=== PATIENT | female | born 1930 | race Caucasian/White ===

== ENCOUNTER 2018-02-26 09:33 | Observation (INO) | payer MEDICARE ==
--- NOTE | 2018-02-19 12:53 | Diagnostic Imaging Report ---
PROCEDURE: Frontal and lateral views of the chest. COMPARISON: None. INDICATIONS: BLADDER TUMOR FINDINGS: Lines/tubes: None. Lungs: Biapical scarring. No evidence of infection or edema. A 1.2 cm nodular opacity projected over the right lower chest most likely represents a nipple shadow. Pleura: There is no pleural effusion or pneumothorax. Heart and mediastinum: Heart size is at the upper limit of normal. Mildly tortuous, calcified thoracic aorta. Bones: Multilevel degenerative changes of the thoracic spine. IMPRESSION: No acute cardiopulmonary disease. Small nodular opacity projected over the right lung is probably a nipple shadow. Consider followup radiograph with nipple markers. Dictated by: Louie Conrad M.D. on 02/19/2018 at 12:59 Electronically approved by: Louie Conrad M.D. on 02/19/2018 at 12:59
[2018-02-19 12:58] LABS: BASOPHILS # (AUTO) 0.1 (0.0-0.1); BASOPHILS % 0.6 % (0.0-1.0); EOSINOPHILS # (AUTO) 0.1 (0.0-0.4); EOSINOPHILS % 1.1 % (0.0-6.0); HEMATOCRIT 35.7 % (34.2-44.1); HEMOGLOBIN 11.6 g/dL (12.0-16.0); LYMPHOCYTES # (AUTO) 1.6 (1.0-3.2); LYMPHOCYTES % 18.2 % (18.0-39.1); MEAN CORPUSCULAR HEMOGLOBIN 28.8 pg (28-32); MEAN CORPUSCULAR HGB CONC 32.5 g/dL (31-35); MEAN CORPUSCULAR VOLUME 88.6 fL (81-99); MONOCYTES # (AUTO) 1.2 (0.2-0.8); MONOCYTES % 13.5 % (4.4-11.3); NEUTROPHILS # (AUTO) 5.8 (2.1-6.9); NEUTROPHILS % 66.4 % (38.7-80.0); PLATELET COUNT 301 x10e3/uL (140-360); RED BLOOD COUNT 4.03 x10e6/uL (3.6-5.1)
[2018-02-19 13:20] LABS: BLOOD UREA NITROGEN 27 mg/dL (7-26); BUN/CREATININE RATIO 31 (6-25); CALCIUM 9.8 mg/dL (8.4-10.2); CARBON DIOXIDE 26 mmol/L (22-29); CHLORIDE 101 mmol/L (98-107); CREATININE, SERUM 0.87 mg/dL (0.57-1.11); EST GLOMERULAR FILTRATION RATE > 60 ML/MIN (60-); GLUCOSE 105 mg/dL (74-118); SODIUM 136 mmol/L (136-145)
[~2018-02-26] VITALS: Ht 165.1 cm; Wt 64.5 kg
[~2018-02-26 09:33] MED LIST: LEVOTHYROXINE75 MCG PO; MICARDIS HCT 41 EACH PO; SERTRALINE HCL50 MG PO; SIMVASTATIN40 MG PO
[2018-02-26] MEDS ORDERED: FENTANYL CITRATE/PF 100MCG/2 ML INJ ONE ×2 (13:53→15:43)
[2018-02-26] MEDS ORDERED: DEXAMETHASONE SOD PHOS INJ 4 MG/ML VIAL IV ONE (14:22)
[2018-02-26] MEDS ORDERED: PROPOFOL IV EMULSION 10 MG/ML 20 ML VIAL IV ONE (14:22)
[2018-02-26] MEDS ORDERED: LIDOCAINE HCL 2% LOCAL INJ 5 ML SDV VIAL INJ ONE (14:22)
[2018-02-26] MEDS ORDERED: SEVOFLURANE INHAL SOLN 250 ML PEN BTL INH ONE (14:22)
[2018-02-26] MEDS ORDERED: ONDANSETRON HCL INJ 2 MG/ML VIAL IV ONE (14:22)
[2018-02-26] MEDS ORDERED: MORPHINE SULFATE 2 MG/ML SYR ONE (14:48)
[2018-02-26] MEDS ORDERED: DEXTROSE 5%/0.45% SOD CHL 1,000 ML IV ONE ×2 (16:22→16:45)
[2018-02-26 16:45] VITALS: BP 96/44
[2018-02-26] MEDS ORDERED: ACETAMINOPHEN/CODEINE 300MG - 30MG TAB PO PRN (16:45)
[2018-02-26] MEDS: LEVOFLOXACIN 500 MG TAB PO SCH (18:11)
[2018-02-26 19:49] VITALS: BP 96/44
[2018-02-26 19:53] VITALS: BP 116/58
[2018-02-26 20:00] VITALS: BP 116/58
[2018-02-26] MEDS: SIMVASTATIN 40 MG TAB PO SCH (22:00)
[2018-02-26 23:51] VITALS: BP 102/52
[2018-02-27 04:00] VITALS: BP 107/49
[2018-02-27] MEDS ORDERED: LEVOTHYROXINE SODIUM 75 MCG TAB PO SCH (06:00)
[2018-02-27] MEDS: LEVOTHYROXINE SODIUM 75 MCG TAB PO SCH (06:15)
[2018-02-27 08:07] VITALS: BP 116/59
[2018-02-27] MEDS ORDERED: TELMISARTAN 40 MG TAB PO SCH (09:00)
[2018-02-27] MEDS: SERTRALINE HCL 50 MG TAB PO SCH ×2 (09:00→11:20)
[2018-02-27] MEDS: HYDROCHLOROTHIAZIDE 25 MG TAB PO SCH ×2 (09:00→11:20)
[2018-02-27 12:22] VITALS: BP 119/56
[2018-02-27 16:36] VITALS: BP 123/53
[2018-02-27] MEDS: LEVOFLOXACIN 500 MG TAB PO SCH (18:00)
[2018-02-27] MEDS ORDERED: ONDANSETRON HCL INJ 2 MG/ML VIAL IV PRN (19:45)
[2018-02-27] MEDS ORDERED: LORAZEPAM 0.5 MG TAB PO ONE (19:45)
[2018-02-27 20:00] VITALS: BP 127/60
[2018-02-27] MEDS: SIMVASTATIN 40 MG TAB PO SCH (20:55)
[2018-02-28] VITALS: BP 113/56
[2018-02-28 04:00] VITALS: BP 117/53
[2018-02-28] MEDS: LEVOTHYROXINE SODIUM 75 MCG TAB PO SCH (06:23)
[2018-02-28 08:00] VITALS: BP 127/53
[2018-02-28 08:15] VITALS: BP 127/53
[2018-02-28] MEDS ORDERED: SERTRALINE HCL 50 MG TAB PO SCH (09:30)
[2018-02-28] MEDS ORDERED: HYDROCHLOROTHIAZIDE 25 MG TAB PO SCH (09:30)
[2018-02-28] MEDS ORDERED: TELMISARTAN 40 MG TAB PO SCH (09:30)
[2018-02-28 14:00] VITALS: BP 125/57
[2018-02-28 16:15] VITALS: BP 109/53
--- NOTE | 2018-03-01 12:58 | Operative Report ---
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 POSTOPERATIVE DIAGNOSIS: Transitional cell carcinoma of the bladder, large. OPERATIVE PROCEDURES PERFORMED 1. Cystoscopy 2. Transurethral resection of large bladder tumor. ANESTHESIA: General anesthesia. ESTIMATED BLOOD LOSS: Minimal. INDICATIONS: Ms. Xu Flores is an 87-year-old woman with a recent history of hematuria. Was found by office cystoscopy to have a large transitional cell tumor in the region of her bladder neck. She now presents for management of this problem. OPERATIVE PROCEDURE IN DETAIL: Patient brought to the operating room and placed in supine position. After initiation of general anesthesia, was placed in the dorsal lithotomy position and prepped and draped in the usual sterile fashion. Cystourethroscopy was performed using 21-Maldivian cystoscope. The anterior and posterior urethra were noted to be normal. The bladder was entered without difficulty. The patient had a massive cystocele and vaginal packing was placed to ease the procedure. The ureteral orifices were in normal anatomical position and produced clear reflux. Beginning at approximately 1 o'clock and proceeding downward until about 5 or 6 o'clock, there was a large papillary TCC noted in the region of the anterior bladder wall and the bladder neck. There was no obvious tumor seen on the right side or in the dome. The trigone was also equally clear. The ureteral orifices of both produced clear efflux. The bladder was left full and cystoscope and sheath were removed. The 26-Maldivian resectoscope sheath was then placed in a retrograde fashion and the Clinipace WorldW[employer] resectoscope was used to perform the procedure. All of the visualized tumor was resected down into the muscle. There was no obvious large tumors left at the conclusion of the procedure. There was no gross perforation of the bladder noted as well. The [employer] evacuator was used to remove all tumor material and this was sent to pathology for microscopic analysis. Once adequate hemostasis was secured, the resectoscope and sheath were removed and a 22-Maldivian 3-way catheter was placed. The patient was started on continuous bladder irrigation using saline. The ureter efflux was noted to be blood-tinged. The patient was returned to supine position and anesthesia was reversed. She was transferred to a bed and taken to the postanesthesia care unit in good condition. Of note, the needle and instrument count were correct at the conclusion of the case. Job#: [id number]
== END 2018-02-28 17:18 | disposition home or self-care (01) ==
LOC: OR 09:33 → PACU V 16:13 → MED/SURG 16:29
PROVIDERS: ADMIT Urology; ATTEND Urology
DX: C67.5 Malignant neoplasm of bladder neck (principal); R31.9 Hematuria, unspecified; I10 Essential (primary) hypertension; E03.9 Hypothyroidism, unspecified; K21.9 Gastro-esophageal reflux disease without esophagitis
CPT/HCPCS: 36415; 52500; 71046; 80048; 85025; 88305; 93005; G0378 ×3; J1100; J2001; J2270; J2405 ×2

== ENCOUNTER → 2018-04-25 | Day surgery (SDC) | payer MEDICARE ==
[2018-04-18 13:03] LABS: BASOPHILS % 0.3 % (0.0-1.0); EOSINOPHILS # (AUTO) 0.1 (0.0-0.4); EOSINOPHILS % 1.3 % (0.0-6.0); HEMATOCRIT 32.5 % (34.2-44.1); HEMOGLOBIN 10.2 g/dL (12.0-16.0); LYMPHOCYTES # (AUTO) 1.5 (1.0-3.2); MEAN CORPUSCULAR HEMOGLOBIN 26.3 pg (28-32); MEAN CORPUSCULAR HGB CONC 31.4 g/dL (31-35); MEAN CORPUSCULAR VOLUME 83.8 fL (81-99); MONOCYTES # (AUTO) 1.3 (0.2-0.8); MONOCYTES % 14.2 % (4.4-11.3); NEUTROPHILS % 66.9 % (38.7-80.0); PLATELET COUNT 304 x10e3/uL (140-360); RED BLOOD COUNT 3.88 x10e6/uL (3.6-5.1); RED CELL DISTRIBUTION WIDTH 14.4 % (11.7-14.4)
[2018-04-18 13:21] LABS: ANION GAP 14.9 mmol/L (8-16); CALCIUM 9.5 mg/dL (8.4-10.2); CREATININE, SERUM 0.97 mg/dL (0.57-1.11); POTASSIUM 3.9 mmol/L (3.5-5.1)
--- NOTE | 2018-04-18 14:04 | Diagnostic Imaging Report ---
EXAMINATION: CHEST 2 VIEWS INDICATION: Bladder tumor. Preop. COMPARISON: None FINDINGS: TUBES and LINES: None. LUNGS: Lungs are well inflated. Lungs are clear. There is no evidence of pneumonia or pulmonary edema. PLEURA: No pleural effusion or pneumothorax. HEART AND MEDIASTINUM: The cardiomediastinal silhouette is unremarkable. BONES AND SOFT TISSUES: No acute osseous lesion. Soft tissues are unremarkable. UPPER ABDOMEN: No free air under the diaphragm. IMPRESSION: No acute thoracic abnormality. Signed by: Dr. Cesar Leonard M.D. on 04/18/2018 2:01 PM
[~2018-04-25] MED LIST changes: +CEFTRIAXONE SOD 1 GM VIAL ONE; +DEXAMETHASONE SOD PHOS INJ 4 MG/ML VIAL ONE; +DIOVAN320 MG PO; +LIDOCAINE HCL 2% LOCAL INJ 5 ML SDV VIAL INJ ONE; +PROPOFOL IV EMULSION 10 MG/ML 20 ML VIAL ONE; +SEVOFLURANE INHAL SOLN 250 ML PEN BTL ONE
[2018-04-25 10:45] VITALS: BP 152/70
--- OUTSIDE RECORDS SUMMARY | 2018-05-07 10:33 | XMS REPORT | Clinical Summary ---
Author Author [facility] Organization [facility] Address Unknown Phone Unavailable Care Team Providers Care Cps Team Lead Name Role Phone Anuja Johnson MD PCP Allergies No Known Allergies Current Medications Prescription Sig. Disp. Refills Start End Date Status Date levothyroxine (SYNTHROID) Take 75 mcg by mouth Active 75 mcg tablet daily. simvastatin (ZOCOR) 40 mg Take 40 mg by mouth every Active tablet evening. Valsartan 320 mg tablet Take 320 mg by mouth Active daily. Omeprazole 40 mg capsule Take 40 mg by mouth Active daily. PROLENSA 0.07 % INT 1 GTT IN OD BID 0 12/15/19 Active ophthalmic drop 18 sertraline (ZOLOFT) 50 mg TK 1 T PO QD 4 12/20/19 Active tablet 18 multivitamin tablet Take 1 tablet by mouth Active daily. calcium carbonate/vitamin 1 tablet po once daily . Active D3 (CALCIUM WITH VITAMIN D OR) cyanocobalamin, vitamin 1 tablet po once daily . Active B-12, (VITAMIN B12 OR) vitamin E 400 unit 1 tablet po once daily . Active capsule LUTEIN OR 1 tablet po once daily . Active VALSARTAN OR Take by mouth. 12/26/19 Discontin 18 ued LEVOTHYROXINE SODIUM Take by mouth. 12/26/19 Discontin (LEVOTHYROXINE OR) 18 ued SULFAMETHOXAZOLE/TRIMETHO Take by mouth. 12/26/19 Discontin PRIM (BACTRIM OR) 18 ued Active Problems Problem Noted Date Altered mental status 11/25/2017 Subarachnoid hemorrhage Hyponatremia Resolved Problems Problem Noted Date Resolved Date Syncope 11/25/2017 11/26/2017 Traumatic subarachnoid hemorrhage 11/25/2017 11/26/2017 Encounters Date Type Specialty Care Team Description 01/16/2018 Office Visit Cardiology Brad Milner MD Syncope, unspecified syncope type (Primary Dx) 01/16/2018 Telephone Cardiology Lee Ann Chow RN Medications (Called to remind pt to continue witholding the Valsartan but pt still taking it. Reports feeling well and BP is fine. Dr. Milner informed of same, received order for pt to just continue taking Valsartan.) 01/14/2018 Hospital Cardiology Brad Milner MD Encounter 01/14/2018 Office Visit Cardiology Brad Milner MD Syncope, unspecified syncope type (Primary Dx); Essential hypertension 12/25/2017 Office Visit Family Practice Anuja Johnson MD Subarachnoid hemorrhage (Primary Dx); Hyponatremia; Elevated glucose; Anemia, unspecified type; Essential hypertension; Hypothyroidism, unspecified type; Prediabetes; History of syncope; Abnormal cardiovascular function study 12/14/2017 Office Visit Neurosurgery Babatunde Guevara MD Syncope, unspecified Yoan Mccoy ResidentMD syncope type; Subarachnoid hemorrhage following injury, no loss of consciousness, initial encounter 11/30/2017 Hospital Cardiology Darlin Witt Encounter 11/26/2017 Orders Only Cardiology Toni Alcocer 11/25/2017 [facility] Toni Banegas MD Syncope, unspecified - Encounter Cathie Mendiola MD syncope type (Primary 11/26/2017 Babatunde Guevara MD Dx); Subarachnoid hemorrhage; Right hip pain; Subarachnoid hemorrhage following injury, no loss of consciousness, initial encounter 11/25/2017 Emergency Emergency Medicine Smith Conn MD Subarachnoid hemorrhage following injury, with loss of consciousness, initial encounter (Primary Dx); Altered mental status, unspecified altered mental status type after 04/24/2017 Family History Medical History Relation Name Comments Heart disease Mother Relation Name Status Comments Mother Social History Tobacco Use Types Packs/Day Years Used Date Never Smoker Smokeless Tobacco: Never Used Alcohol Use Drinks/Week oz/Week Comments No Sex Assigned at Date Recorded Not on file Last Filed Vital Signs Vital Sign Reading Time Taken Blood Pressure 135/55 01/14/2018 9:17 AM CDT Pulse 67 01/14/2018 9:17 AM CDT Temperature 36.9 C (98.5 F) 01/14/2018 9:17 AM CDT Respiratory Rate 18 01/14/2018 9:17 AM CDT Oxygen Saturation 98% 01/14/2018 9:17 AM CDT Inhaled Oxygen - - Concentration Weight 67.6 kg (149 lb) 01/14/2018 9:17 AM CDT Height 167.6 cm (5' 6") 01/14/2018 9:17 AM CDT Body Mass Index 24.05 01/14/2018 9:17 AM CDT Plan of Treatment Health Maintenance Due Date Last Done Comments IMM Pneumococcal Age 65 1994 and Up IMM Influenza Seasonal 04/22/2018Apr to September (>/=19 yrs) Procedures Procedure Name Priority Date/Time Associated Diagnosis Comments 48 HOUR HOLTER MONITOR Routine 01/14/2018 Syncope, unspecified Results for this 10:47 AM CDT syncope type procedure are in the results section. BMP POC Routine 12/25/2017 Results for this 3:11 PM CDT procedure are in the results section. CBC/DIFF STAT 12/25/2017 Anemia, unspecified type Results for this 2:49 PM CDT procedure are in the results section. HEMOGLOBIN A1C STAT 12/25/2017 Elevated glucose Results for this 2:49 PM CDT procedure are in the results section. 48 HOUR HOLTER MONITOR 11/30/2017 Results for this 9:07 AM CDT procedure are in the results section. GLUCOSE POC Routine 11/26/2017 Results for this 5:40 PM CDT procedure are in the results section. D-DIMER STAT 11/26/2017 Results for this 2:00 PM CDT procedure are in the results section. GLUCOSE POC Routine 11/26/2017 Results for this 11:48 AM CDT procedure are in the results section. TRANSTHORACIC ECHO (TTE) STAT 11/26/2017 Results for this 8:43 AM CDT procedure are in the results section. GLUCOSE POC Routine 11/26/2017 Results for this 7:39 AM CDT procedure are in the results section. BASIC METABOLIC PANEL STAT 11/26/2017 Results for this 6:00 AM CDT procedure are in the results section. IP CONSULT TO Routine 11/26/2017 OCCUPATIONAL THERAPY 4:23 AM CDT PHOSPHORUS STAT 11/26/2017 Results for this 1:20 AM CDT procedure are in the results section. MAGNESIUM STAT 11/26/2017 Results for this 1:20 AM CDT procedure are in the results section. BASIC METABOLIC PANEL STAT 11/26/2017 Results for this 1:20 AM CDT procedure are in the results section. CBC/DIFF STAT 11/26/2017 Results for this 1:20 AM CDT procedure are in the results section. SEQUENTIAL COMPRESSION STAT 11/25/2017 PUMP 11:56 PM CDT GLUCOSE POC Routine 11/25/2017 Results for this 9:14 PM CDT procedure are in the results section. URINE CULTURE STAT 11/25/2017 Results for this 8:50 PM CDT procedure are in the results section. SURVEILLANCE CULTURE Routine 11/25/2017 Results for this 6:20 PM CDT procedure are in the results section. IP CONSULT TO PHYSICAL Routine 11/25/2017 THERAPY 4:15 PM CDT 12 LEAD EKG Routine 11/25/2017 Results for this 3:18 PM CDT procedure are in the results section. XRAY PELVIS 1 VIEW STAT 11/25/2017 Syncope, unspecified Results for this 3:15 PM CDT syncope type procedure are in the results section. TYPE AND SCREEN STAT 11/25/2017 3:02 PM CDT VBG POC Routine 11/25/2017 Results for this 3:01 PM CDT procedure are in the results section. BMP POC Routine 11/25/2017 Results for this 3:01 PM CDT procedure are in the results section. TROPONIN I POC Routine 11/25/2017 Results for this 2:59 PM CDT procedure are in the results section. FREE T4 STAT 11/25/2017 Results for this 2:55 PM CDT procedure are in the results section. TSH STAT 11/25/2017 Results for this 2:55 PM CDT procedure are in the results section. CBC/DIFF STAT 11/25/2017 Results for this 2:55 PM CDT procedure are in the results section. XRAY CHEST 2 VIEWS STAT 11/25/2017 Altered mental status, Results for this 12:54 PM CDT unspecified altered procedure are in the mental status type results section. CT C-SPINE W/O CONTRAST STAT 11/25/2017 Altered mental status, Results for this 12:35 PM CDT unspecified altered procedure are in the mental status type results section. UA CHEMISTRIES STAT 11/25/2017 Results for this 12:30 PM CDT procedure are in the results section. CT HEAD W/O CONTRAST STAT 11/25/2017 Altered mental status, Results for this 11:32 AM CDT unspecified altered procedure are in the mental status type results section. TROPONIN I POC Routine 11/25/2017 Results for this 11:19 AM CDT procedure are in the results section. VBG POC Routine 11/25/2017 Results for this 11:06 AM CDT procedure are in the results section. BMP POC Routine 11/25/2017 Results for this 11:05 AM CDT procedure are in the results section. 12 LEAD EKG Routine 11/25/2017 Results for this 11:03 AM CDT procedure are in the results section. PT/INR/PTT STAT 11/25/2017 Results for this 11:00 AM CDT procedure are in the results section. BASIC METABOLIC PANEL STAT 11/25/2017 Results for this 11:00 AM CDT procedure are in the results section. after 04/24/2017 Results * 48 HOUR HOLTER MONITOR (01/14/2018 10:47 AM) 48 HOUR HOLTER MONITOR [facility] Test Date:2018-01-14 Pat Name: CHRISTIE HUMPHRIES Department: Room: Gender: Delivery Department Supervisor: PATRIC SMITH CCT :[phone] Requested By: Order Number: Colt aragon MD: Brad Milner M.D. Interpretive Statements PREDOMINANT RHYTHM IS SINUS HR RANGE: 50-99 BPM LONGEST PAUSE: 1.4 SEC FREQUENT PACS WITH SHORT RUNS OF ATRIAL TACHYCARDIA RARE PVCS NO HEART BLOCK Electronically Signed On 01-16-18 11:02:00 CDT by Brad Milner M.D. Performing Organization Address City/State/Zipcode Phone Number [facility] * BMP POC (12/25/2017 3:11 PM) TCO2 POC 26 21 - 32 mmol/L BT [facility] 1 Chloride POC 101 98 - 107 mmol/L BT [facility] 1 Potassium POC 4.6 3.50 - 5.10 mmol/L BT [facility] 1 Sodium POC 136 136 - 145 mmol/L BT [facility] 1 Glucose POC 107 (H) 74 - 106 mg/dL BT [facility] 1 Urea Nitrogen POC 25 (H) 7 - 18 mg/dL BT [facility] 1 Creatinine POC 0.9 0.6 - 1.3 mg/dL BT [facility] 1 Ionized Calcium POC 1.24 1.15 - 1.29 mmol/L BT [facility] 1 GFR, Estimated 59 mL/min/1.73 m2 BT [facility] 1 GFR, Estim, Afr-Am >60 mL/min/1.73 m2 BT [facility] 1 Performing Organization Address [facility] Phone Number [facility] 1 * HEMOGLOBIN A1C (12/25/2017 2:49 PM) Hemoglobin A1c 5.8 4.3 - 6.1 % [facility] Est Average Gluc 119.8 mg/dL [facility] Specimen Blood Performing Organization Address [facility] Phone Number [facility] * CBC/DIFF (12/25/2017 2:49 PM) Only the most recent of 3 results within the time period is included. WBC 8.3 4.5 - 11.0 K/uL [facility] RBC 4.06 (L) 4.20 - 5.40 M/uL [facility] Hemoglobin 11.7 (L) 12.0 - 16.0 g/dL [facility] Hematocrit 37.5 37.0 - 47.0 % [facility] MCV 92 82 - 92 fL [facility] MCH 28.8 27.0 - 32.0 pg [facility] MCHC 31.2 (L) 32.0 - 36.0 g/dL [facility] RDW 50.1 (H) 36.4 - 46.3 fL [facility] Platelet 294 150 - 400 K/uL [facility] Neutrophil 66.0 34.0 - 70.0 % [facility] Lymphocyte 18.6 (L) 20.0 - 50.0 % [facility] Monocyte 13.4 (H) 5.0 - 12.0 % [facility] Eosinophil 1.6 0.7 - 5.0 % [facility] Basophil 0.4 0.1 - 1.2 % [facility] Neutrophil, Abs 5.48 1.56 - 6.13 K/uL [facility] Lymphocyte, Abs 1.54 1.18 - 3.74 K/uL [facility] Monocyte, Abs 1.11 (H) 0.24 - 0.36 K/uL [facility] Eosinophil, Abs 0.13 0.04 - 0.36 K/uL [facility] Basophil, Abs 0.03 0.01 - 0.08 K/uL [facility] Specimen Blood Performing Organization Address City/[facility] Phone Number [facility] * 48 HOUR HOLTER MONITOR (11/30/2017 9:07 AM) 48 HOUR HOLTER MONITOR [facility] Test Date:2017-11-30 Pat Name: CHRISTIE HUMPHRIES Department: Room: Gender: F Delivery Department Supervisor: DARLIN TOM :[phone] 10-11 Requested By: Order Number: Colt aragon MD: Brad Milner M.D. Interpretive Statements PREDOMINANT RHYTHM IS SINUS HR RANGE: 48-106 BPM LONGEST PAUSE:1.4 SEC RARE PACS WITH RUNS OF ATRIAL TACHYCRDIA'RARE PVCS NO HEART BLOCK Electronically Signed On 12-06-17 08:07:29 CDT by Brad Milner M.D. Performing Organization Address [facility] Phone Number [facility] * GLUCOSE POC (11/26/2017 5:40 PM) Only the most recent of 4 results within the time period is included. Glucose POC 108 (H) 74 - 106 mg/dL BT [facility]IN[facility] 1 Performing Organization Address [facility] Phone Number [facility] BT [facility] 1 * D-DIMER (11/26/2017 2:00 PM) D-Dimer 0.58 ug/mL,FEU BT MAIN-STATION 3 Comment: Values of quantitative d-Dimer less than 0.40 ug/mL FEU have been reported to be associated with a low probability of deep vein thrombosis/pulmonary embolism. This test alone should not be used to rule out DVT/PE. Specimen Blood Performing Organization Address [facility] Phone Number [facility] BT MAIN[facility] 3 * TRANSTHORACIC ECHO (TTE) (11/26/2017 8:43 AM) TRANSTHORACIC ECHO (TTE) Transthoracic [facility] Echo Report CHRISTIE HUMPHRIES Age:87 Gender: F :[id number] Exam Date: 11/26/2017 08:43 Exam Location: [facility] Echo Ordering Phys: CATHIE MENDIOLA Referring Phys: Reading Phys:Audra Fisher MD Fellow Phys: Fellow Phys: [employer]er [employer]: Toni Alcocer Reason For Exam: Indications: Syncope, Syncope and collapse ICD-9 Codes: R55 Exam Type: TRANSTHORACIC ECHO (TTE) Procedure CPT:18381 Addtional CPT: Ht (in): 66 BSA: 1.76HR: 66 Rhythm: Sinus rhythm Wt (lb): 146BP: 143/ 70 Technical Quality: History: MEASUREMENTS(Male / Female) Normal Values 2D ECHO LV Diastolic Diameter PLAX4.4 cm 4.2 - 5.9 / 3.9 - 5.3 cm LV Systolic Diameter PLAX 2.5 cm 2.1 - 4.0 cm LV Fractional Shortening PLAX 43.1 % 25 - 46% IVS Diastolic Thickness 1.1 cm LVPW Diastolic Thickness0 .85 cm LV Relative Wall Thickness0.43 LVOT Diameter 1.9 cm Aortic Root Diameter 2.9 cm LV Diastolic Volume MOD 4C88.1 cm LV Systolic Volume MOD 4C 26.9 cm LV Ejection Fraction MOD 4C 69.5 % LV Stroke Volume MOD 4C 61.2 cm LV Cardiac Output MOD [id number] cm/min LV Cardiac Index MOD 4C 2293 cm/minm LA Volume 49 cm 18 - 58 / 22 - 52 cm LA Volume Index 27.8 cm/m 16 - 28 cm/m RA Area 15 cm DOPPLER LVOT Peak Velocity 140 cm/s LVOT Peak Gradient 7.8 mmHg LVOT Mean Velocity 76.9 cm/s LVOT Mean Gradient 2.4 mmHg LVOT Velocity Time Integral 32 cm LVOT Stroke Volume 91.3 cm Mitral E Point Velocity 87.8 cm/s TR Peak Velocity 248 cm/s TR Peak Gradient 24.6 mmHg LV E' Septal Velocity 6.8 cm/s Mitral E to LV E' Septal Ratio12.8 FINDINGS Left Ventricle Normal left ventricular size. Normal left ventricular systolic function. Left ventricular ejection fraction is 60-64%. There are no gross wall motion abnormalities noted. Impaired LV relaxation, likely normal LV filling pressures. Right Ventricle Grossly normal right ventricular size and function. Right Atrium Normal right atrial size. Left Atrium Normal left atrial size. IAS Mitral Valve Mild mitral annular calcification. Mitral leaflets mildly thickened. Trace mitral regurgitation. Aortic Valve The aortic valve is trileaflet and opens well. Annular calcification. Trace aortic regurgitation. Tricuspid Valve Grossly normal tricuspid valve. Mild tricuspid regurgitation (normal variant). Incomplete TR jet, but estimated pulmonary artery systolic pressure estimated to be at least 25-30 mmHg assuming a RA pressure of 0-5 mmHg. Pulmonic Valve Pulmonic valve not well visualized. Mild pulmonic regurgitation (normal variant). Pericardium Echo free space anterior to the right ventricle likely represents a fat pad. Aorta Normal size aortic root adjusted for BSA. IVC RA pressure is 0-5 mmHg. CONCLUSIONS Normal left ventricular size. Normal left ventricular systolic function. Left ventricular ejection fraction is 60-64%. There are no gross wall motion abnormalities noted. Impaired LV relaxation, likely normal LV filling pressures. Grossly normal right ventricular size and function. Incomplete TR jet, but estimated pulmonary artery systolic pressure estimated to be at least 25-30 mmHg assuming a RA pressure of 0-5 mmHg. No prior study for comparison. Audra Fisher MD (Electronically Signed) Final Date:26 Nov 2017 17:37 2D ECHO LV Diastolic Diameter PLAX4.4 cm 4.2 - 5.9 / 3.9 - 5.3 cm LV Systolic Diameter PLAX 2.5 cm 2.1 - 4.0 cm LV Fractional Shortening PLAX 43.1 % 25 - 46% IVS Diastolic Thickness 1.1 cm LVPW Diastolic Thickness0 .85 cm LV Relative Wall Thickness0.43 LVOT Diameter 1.9 cm Aortic Root Diameter 2.9 cm LV Diastolic Volume MOD 4C88.1 cm LV Systolic Volume MOD 4C 26.9 cm LV Ejection Fraction MOD 4C 69.5 % LV Stroke Volume MOD 4C 61.2 cm LV Cardiac Output MOD [id number] cm/min LV Cardiac Index MOD 4C 2293 cm/minm LA Volume 49 cm 18 - 58 / 22 - 52 cm LA Volume Index 27.8 cm/m 16 - 28 cm/m RA Area 15 cm DOPPLER LVOT Peak Velocity 140 cm/s LVOT Peak Gradient 7.8 mmHg LVOT Mean Velocity 76.9 cm/s LVOT Mean Gradient 2.4 mmHg LVOT Velocity Time Integral 32 cm LVOT Stroke Volume 91.3 cm Mitral E Point Velocity 87.8 cm/s TR Peak Velocity 248 cm/s TR Peak Gradient 24.6 mmHg LV E' Septal Velocity 6.8 cm/s Mitral E to LV E' Septal Ratio12.8 Performing Organization Address City/State/Zipcode Phone Number [facility] * BASIC METABOLIC PANEL (11/26/2017 6:00 AM) Only the most recent of 3 results within the time period is included. CO2 26 21 - 31 mmol/L BT [facility]IN-ST[facility] 1 Chloride 100 98 - 107 mmol/L BT [facility] 1 Potassium 4.3 3.5 - 5.1 mmol/L BT [facility] 1 Sodium 132 (L) 136 - 145 mmol/L BT [facility] 1 Glucose 87 70 - 110 mg/dL BT [facility] 1 Urea Nitrogen 18 7 - 25 mg/dL BT [facility] 1 Creatinine 0.90 0.6 - 1.2 mg/dL BT [facility] 1 Anion Gap 6 BT MAIN-STATION 1 Calcium 9.6 8.6 - 10.3 mg/dL BT [facility] 1 GFR, Estimated 59 mL/min/1.73 m2 BT [facility] 1 GFR, Estim, Afr-Am >60 mL/min/1.73 m2 BT [facility] 1 Specimen Blood Performing Organization Address [facility] Phone Number [facility] 1 * PHOSPHORUS (11/26/2017 1:20 AM) Phosphorus 3.5 2.5 - 5.0 mg/dL BT [facility] 1 Specimen Blood Performing Organization Address [facility] Phone Number [facility] 1 * MAGNESIUM (11/26/2017 1:20 AM) Magnesium 2.3 1.9 - 2.7 mg/dL BT [facility] 1 Specimen Blood Performing Organization Address [facility] Phone Number [facility] 1 * URINE CULTURE (11/25/2017 8:50 PM) Spec Description Clean catch urine [facility] Order Comments None [facility] Culture 1,000-10,000 CFU/ml [facility] Streptococcus alpha hemolytic, not S. pneumoniae, not Enterococcus 10,000-100,000 CFU/ml Staphylococcus epidermidis Report Status Final 11/30/2017 [facility] Organism 10,000-100,000 CFU/ml [facility] Staphylococcus epidermidis Method EMILIE [facility] Clindamycin <=0.5 Susceptible [facility] Erythromycin >4 Resistant [facility] Levofloxacin <=1 Susceptible [facility] Oxacillin 1 Resistant [facility] Penicillin G >1 Resistant [facility] Rifampin <=0.5 Susceptible [facility] Tetracycline 2 Susceptible [facility] Vancomycin 1 Susceptible [facility] Specimen Urine clean catch - CLEAN CATCH URINE Performing Organization Address [facility] Phone Number [facility] * SURVEILLANCE CULTURE (11/25/2017 6:20 PM) Spec Description Nasal [facility] Order Comments None [facility] Culture No Methicillin resistant [facility] Staphylococcus aureus isolated Report Status Final 11/27/2017 [facility] Specimen Nasal - NASAL Performing Organization Address City/State/Zipcode Phone Number [facility] * 12 LEAD EKG (11/25/2017 3:18 PM) 12 LEAD EKG FOR CHP SMS Anast[facility] Test Date:2017-11-25 Pat Name: CHRISTIE HUMPHRIES Department: Room: Gender: F Delivery Department Supervisor: [id number] :1931-0 10-11 Requested By: Order Number: Colt aragon MD: Ramez ARTHUR Measurements Intervals [place] Rate: 65 P:33 [place]: 165 QRS: -47 QRSD: 92 T:21 QT: 411 QTc:428 Interpretive Statements SINUS RHYTHM LEFT ANTERIOR FASCICULAR BLOCK Poor anterior R wave progression Non-specific ST-T changes Abnormal ECG Electronically Signed On 11-25-17 17:26:29 CDT by Ramez ARTHUR Performing Organization Address City/[facility] Phone Number [facility] * XRAY PELVIS 1 VIEW (11/25/2017 3:15 PM) Impressions Performed At IMPRESSION: SMS No acute osseous lesion. If the report is "FINALIZED" it indicates that the attending/staff radiologist has reviewed the images and agrees with the resident's interpretation. Dictated By: Doc Murrell MD, 11/25/2017 3:32 PM I have reviewed the study and agree with the findings in this report. Signed By: Franklin Ochoa MD, 11/25/2017 3:33 PM Narrative Performed At Bilateral hips and pelvis - 1 view SMS HISTORY:trauma COMPARISON: None DISCUSSION: No displaced fracture or malalignment is identified. Mild degenerative changes of the bilateral acetabular joints and pubic symphysis. The sacrum is partially obscured by stool and overlying bowel gas. Procedure Note Interface, Rad/Mammog In - 11/25/2017 3:38 PM CDT Bilateral hips and pelvis - 1 view HISTORY: trauma COMPARISON: None DISCUSSION: No displaced fracture or malalignment is identified. Mild degenerative changes of the bilateral acetabular joints and pubic symphysis. The sacrum is partially obscured by stool and overlying bowel gas. IMPRESSION IMPRESSION: No acute osseous lesion. If the report is "FINALIZED" it indicates that the attending/staff radiologist has reviewed the images and agrees with the resident's interpretation. Dictated By: Doc Murrell MD, 11/25/2017 3:32 PM I have reviewed the study and agree with the findings in this report. Signed By: Franklin Ochoa MD, 11/25/2017 3:33 PM Performing Organization Address City/[facility] Phone Number [facility] * VBG POC (11/25/2017 3:01 PM) Only the most recent of 2 results within the time period is included. pH, Nelson POC 7.42Comment: Physician 7.33 - 7.43 BT MAIN-STATION 1 Notified pCO2, Nelson POC 41.0 38.0 - 50.0 mm Hg BT MAIN-STATION 1 pO2, Nelson POC 16 (L) 50 - 75 mm Hg BT MAIN-STATION 1 Base Excess, Nelson POC 2 mmol/L BT MAIN-STATION 1 HCO3, Nelson POC 26.6 (H) 22.0 - 26.0 mmol/L BT MAIN-STATION 1 % Sat, Nelson POC 21 (L) 60 - 85 % BT MAIN-STATION 1 Lactic Acid, Nelson POC 1.27 0.4 - 2.0 mmol/L BT MAIN-STATION 1 Sample Type Nelson BT [facility]IN-STATION 1 TCO2, NELSON POC 28 21 - 32 mmol/L BT MAIN-STATION 1 Performing Organization Address [facility] Phone Number [facility] BT [facility]IN-STATION 1 * BMP POC (11/25/2017 3:01 PM) Only the most recent of 2 results within the time period is included. CO2 POC 25 21 - 32 mmol/L BT MAIN-STATION 1 Chloride POC 96 (L) 98 - 107 mmol/L BT MAIN[facility]STATION 1 Potassium POC 4.3 3.50 - 5.10 mmol/L BT MAIN-STATION 1 Sodium POC 132 (L) 136 - 145 mmol/L BT MAIN-STATION 1 Glucose POC 109 (H) 74 - 106 mg/dL BT MAIN[facility] 1 Urea Nitrogen POC 25 (H) 7 - 18 mg/dL BT [facility]IN[facility]STATION 1 Creatinine POC 1.0 0.6 - 1.3 mg/dL BT MAIN-STATION 1 Calcium Ionized POC 1.15 1.15 - 1.29 mmol/L BT MAIN-STATION 1 Hemoglobin POC 14.3 12.0 - 16.0 g/dL BT MAIN-STATION 1 Hematocrit POC 42.0 37.0 - 47.0 % BT MAIN-STATION 1 GFR, Estimated 52 mL/min/1.73 m2 BT MAIN-STATION 1 GFR, Estim, Afr-Am >60 mL/min/1.73 m2 BT MAIN-STATION 1 Performing Organization Address [facility] Phone Number [facility] BT [facility]-ST[facility] 1 * TROPONIN I POC (11/25/2017 2:59 PM) Only the most recent of 2 results within the time period is included. Troponin POC 0.06Comment: Physician 0.00 - 0.08 ng/mL BT MAIN-STATION 1 Notified Performing Organization Address [facility] [place] Phone Number [facility] * TSH (11/25/2017 2:55 PM) TSH 1.34 0.45 - 5.33 uIU/mL [facility]IN[facility] 3 Specimen Blood Performing Organization Address [facility] [place] Phone Number [facility] 3 * FREE T4 (11/25/2017 2:55 PM) Free T4 0.82 0.61 - 1.12 ng/dl [facility]IN[facility] 1 Comment: females: 1st Trimester-0.52-1.10 ng/dL 2nd Trimester=0.45-0.99 ng/dL 3rd Trimester=0.48-0.95 ng/dL Specimen Blood Performing Organization Address [facility] [place] Phone Number [facility] 1 * XRAY CHEST 2 VIEWS (11/25/2017 12:54 PM) Impressions Performed At IMPRESSION:No acute cardiopulmonary abnormality. SMS Signed By: Rosi Tran MD, 11/25/2017 12:54 PM Narrative Performed At EXAM: XR CHEST 2 VIEWS SMS DATE: 11/25/2017 12:20 PM INDICATION: seizure. Altered mental status, unspecified altered mental status type COMPARISON: None available TECHNIQUE: PA and lateral chest radiographs FINDINGS: Lines, tubes and hardware: None. Lungs and pleura: The lungs are hyperinflated but overall clear. The costophrenic sulci are sharp without effusion. Pulmonary vascularity is normal. Heart and mediastinum: The heart size is enlarged.A hiatal hernia is present. Vascular calcifications are present at the aortic arch. Bones: No acute bony abnormality is identified. Procedure Note Interface, Rad/Mammog In - 11/25/2017 12:59 PM CDT EXAM: XR CHEST 2 VIEWS DATE: 11/25/2017 12:20 PM INDICATION: seizure. Altered mental status, unspecified altered mental status type COMPARISON: None available TECHNIQUE: PA and lateral chest radiographs FINDINGS: Lines, tubes and hardware: None. Lungs and pleura: The lungs are hyperinflated but overall clear. The costophrenic sulci are sharp without effusion. Pulmonary vascularity is normal. Heart and mediastinum: The heart size is enlarged. A hiatal hernia is present. Vascular calcifications are present at the aortic arch. Bones: No acute bony abnormality is identified. IMPRESSION IMPRESSION: No acute cardiopulmonary abnormality. Signed By: Rosi Tran MD, 11/25/2017 12:54 PM Performing Organization Address City/State/Zipcode Phone Number SMS * CT C-SPINE W/O CONTRAST (11/25/2017 12:35 PM) Impressions Performed At IMPRESSION: SMS 1.No acute abnormality of the cervical spine. 2.Mild multilevel degenerative changes. Dictated By: Gunner Lopez MD, 11/25/2017 12:52 PM I have reviewed the study and agree with the findings in this report. Signed By: Rosi Tran MD, 11/25/2017 1:28 PM Narrative Performed At EXAM: CT CERVICAL SPINE WITHOUT CONTRAST SMS DATE: 11/25/2017 12:35 PM INDICATION: fall from standing, r/o. Altered mental status, unspecified altered mental status type COMPARISON: None TECHNIQUE:Volumetric acquisition of the cervical spine without contrast. Axial, sagittal and coronal reconstructions. IV contrast: None. DLP: 101 mGy-cm FINDINGS: The spine is imaged from the skull base to the level of T2. No acute fracture or malalignment is identified. Mild multilevel degenerative changes with small anterior osteophyte formation at C5-C6 and C6-C7, and mild multilevel left eft uncovertebral hypertrophy at 4-C7 with mild neuroforaminal stenosis No soft tissue abnormality is identified. Procedure Note Interface, Rad/Mammog In - 11/25/2017 1:33 PM CDT EXAM: CT CERVICAL SPINE WITHOUT CONTRAST DATE: 11/25/2017 12:35 PM INDICATION: fall from standing, r/o. Altered mental status, unspecified altered mental status type COMPARISON: None TECHNIQUE: Volumetric acquisition of the cervical spine without contrast. Axial, sagittal and coronal reconstructions. IV contrast: None. DLP: 101 mGy-cm FINDINGS: The spine is imaged from the skull base to the level of T2. No acute fracture or malalignment is identified. Mild multilevel degenerative changes with small anterior osteophyte formation at C5-C6 and C6-C7, and mild multilevel left eft uncovertebral hypertrophy at 4-C7 with mild neuroforaminal stenosis No soft tissue abnormality is identified. IMPRESSION IMPRESSION: 1. No acute abnormality of the cervical spine. 2. Mild multilevel degenerative changes. Dictated By: Gunner Lopez MD, 11/25/2017 12:52 PM I have reviewed the study and agree with the findings in this report. Signed By: Rosi Tran MD, 11/25/2017 1:28 PM Performing Organization Address City/State/Zipcode Phone Number SMS * UA CHEMISTRIES (11/25/2017 12:30 PM) Color Yellow [facility] 1 Clarity Hazy [facility] Spec [place] 1.013 1.001 - 1.035 [facility] pH 6.0 5 - 8 [facility] Protein 3+ (A) NEG [facility] 1 Glucose Negative NEG [facility] 1 Ketone Negative NEG [facility] Bilirubin Negative NEG [facility] Nitrate Negative NEG [facility] 1 Urobilinogen <1.0 0.2 - 1.0 EU/dL [facility] 1 Leukocyte 3+ (A) NEG [facility] Blood 3+ (A) NEG [facility] RBC >182 (H) 0 - 4 /HPF [facility] WBC 82 (H) 0 - 5 /HPF [facility] Bacteria Few [facility] 1 Epithelial Cell 2 /HPF [facility] 1 Mucous Present [facility] Hyaline Cast 6 /LPF [facility] 1 Specimen Urine Performing Organization Address [facility]/Zipcode Phone Number MISYS [facility] * CT HEAD W/O CONTRAST (11/25/2017 11:32 AM) Impressions Performed At IMPRESSION: Small volume subarachnoid hemorrhage. SMS Findings discussed with Dr. Vieyra in the EC at 12:15 pm on 11/25/2017. Signed By: Dominick Arellano MD, 11/25/2017 12:29 PM Narrative Performed At EXAM: CT HEAD WITHOUT CONTRAST [facility] DATE: 11/25/2017 11:32 AM INDICATION: Seizure TECHNIQUE: Noncontrast axial imaging of the head was obtained from the vertex to the skull base. Images were reconstructed in the coronal and sagittal planes. DLP: 813.1mGy-cm COMPARISON: None DISCUSSION: Small volume subarachnoid hemorrhage. Scattered microangiopathic changes. Boyd-white matter interface is maintained. Prominence of ventricles and extra-axial spaces due to volume loss. No hydrocephalus, midline shift, or herniation. Prominent bilateral choroid plexus xanthogranulomatous. The calvarium and skull base are intact. The imaged paranasal sinuses and tympanomastoid cavities are clear. Procedure Note Interface, Rad/Mammog In - 11/25/2017 12:35 PM CDT EXAM: CT HEAD WITHOUT CONTRAST DATE: 11/25/2017 11:32 AM INDICATION: Seizure TECHNIQUE: Noncontrast axial imaging of the head was obtained from the vertex to the skull base. Images were reconstructed in the coronal and sagittal planes. DLP: 813.1mGy-cm COMPARISON: None DISCUSSION: Small volume subarachnoid hemorrhage. Scattered microangiopathic changes. Boyd-white matter interface is maintained. Prominence of ventricles and extra-axial spaces due to volume loss. No hydrocephalus, midline shift, or herniation. Prominent bilateral choroid plexus xanthogranulomatous. The calvarium and skull base are intact. The imaged paranasal sinuses and tympanomastoid cavities are clear. IMPRESSION IMPRESSION: Small volume subarachnoid hemorrhage. Findings discussed with Dr. Vieyra in the EC at 12:15 pm on 11/25/2017. Signed By: Dominick Arellano MD, 11/25/2017 12:29 PM Performing Organization Address City/State/Zipcode Phone Number [facility] * 12 LEAD EKG (11/25/2017 11:03 AM) 12 LEAD EKG FOR [facility] Test Date:2017-11-25 Pat Name: CHRISTIE HUMPHRIES Department: Room: Gender: F Delivery Department Supervisor: :[phone] [phone] Requested By: Order Number: Colt aragon MD: Audra Fisher Measurements Intervals [place] Rate: 69 P:47 [place]: 159 QRS: -45 QRSD: 87 T:56 QT: 407 QTc:438 Interpretive Statements SINUS RHYTHM PATTERN CONSISTENT WITH PULMONARY DISEASE LEFT ANTERIOR FASCICULAR BLOCK Electronically Signed On 11-30-17 23:51:38 CDT by Audra Fisher Performing Organization Address [facility] [place] Phone Number SMS * PT/INR/PTT (11/25/2017 11:00 AM) PT 12.3 11.8 - 15.0 Seconds [facility] INR 0.9 [facility] SUGGESTED THERAPEUTIC RANGES: INR 2.0-3.0 for MODERATE INTENSITY ANTICOAGULATION INR 2.5-3.5 for HIGH INTENSITY ANTICOAGULATION PTT 23.7 23.6 - 36.4 Seconds [facility] 2 Specimen Blood Performing Organization Address [facility] [place] Phone Number MISYS [facility] 2 after 04/24/2017
--- NOTE | 2018-06-09 15:21 | Operative Report ---
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 POSTOPERATIVE DIAGNOSIS: Recurrent transitional cell carcinoma of the bladder. PROCEDURES PERFORMED 1. Cystoscopy. 2. Bladder biopsies. ANESTHESIA: General anesthesia. ESTIMATED BLOOD LOSS: Minimal. INDICATIONS: Ms. Xu Flores is an 87-year-old woman who presented with hematuria and was previously found to have a large papillary TCC of the bladder. She now presents for repeat inspection of the bladder given bring her continued hematuria. PROCEDURE IN DETAIL: The patient brought in the operating room, placed in supine position after initiation of general anesthesia, was prepped and draped in the usual sterile fashion. The patient had significant vaginal prolapse and entrance into the bladder was mildly difficult. A gauze was placed in the vagina to help assist with the procedure. Entrance into the bladder was then uncomplicated. The anterior and posterior regions were noted to be normal. The ureteral orifices were in normal anatomical position and produced clear efflux. 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 Using the cold cup bladder biopsy forceps, the tumor on the left lateral wall was removed in its entirety and the base fulgurated using electrocautery device. A biopsy was also taken from the posterior wall. This flap was also fulgurated using the Bugbee electrode. There were no other lesions seen in the bladder at that time. The bladder was then drained in its entirety and cystoscope and sheath were removed. The patient returned to the supine position and anesthesia was reversed. She was transferred to a bed and taken to the postanesthesia care unit in good condition. Of note, the needle and instrument count were correct at the conclusion of the case. Job#: [id number] SUB
== END | disposition home or self-care (01) ==
LOC: OR 08:09
PROVIDERS: ATTEND Urology
DX: C67.2 Malignant neoplasm of lateral wall of bladder (principal); N81.11 Cystocele, midline; N30.80 Other cystitis without hematuria; I10 Essential (primary) hypertension; E03.9 Hypothyroidism, unspecified; I49.1 Atrial premature depolarization; Z01.810 Encounter for preprocedural cardiovascular examination; Z01.812 Encounter for preprocedural laboratory examination; Z01.818 Encounter for other preprocedural examination
CPT/HCPCS: 36415; 52234; 71046; 80048; 85025; 88305; 93005; J0696; J1100; J2001